=== PATIENT | male | born 1960 | race Hispanic/Latino ===

== ENCOUNTER 2017-09-14 11:10 | Emergency (ER) | payer BC ==
[2017-09-14 13:21] LABS: Absolute Lymphocytes (CBC) 1.3 K/uL (0.7-4.9); Absolute Monocytes 0.5 K/uL (0.1-1.3); Basophils % 0.6 % (0-1.3); Eosinophils % 2.7 % (0-4.4); Hematocrit 43.3 % (39.6-49.0); Lymphocytes % 21.7 % (15.3-44.8); MCH 30.5 pg (27.0-35.0); MCV 88.9 fL (80-100); MPV 10.8 fL (7.6-11.3); Monocytes % 8.5 % (3.3-12.3); RBC Red Blood Cell Count 4.87 M/uL (4.33-5.43)
[2017-09-14 13:25] LABS: Protime INR 0.96
[2017-09-14 13:38] LABS: ALT/SGPT 45 U/L (12-78); AST/SGOT 27 U/L (15-37); Albumin 3.9 g/dL (3.4-5.0); Alkaline Phosphatase 85 U/L (45-117); BUN Blood Urea Nitrogen 14 mg/dL (7-18); Bicarbonate 28 mmol/L (21-32); Bilirubin Direct 0.2 mg/dL (0-0.2); Bilirubin Total 1.1 mg/dL (0.2-1.0); CKMB Creatine Kinase MB 1.5 ng/mL (0.3-3.6); Creatine Phosphokinase 92 U/L (39-308); Glucose Level 105 mg/dL (74-106); Magnesium 2.3 mg/dL (1.8-2.4); NT PRO-BNP 10 pg/mL (<125); Potassium 4.4 mmol/L (3.5-5.1); Protein, Total 7.9 g/dL (6.4-8.2); Sodium Level 140 mmol/L (136-145)
[2017-09-14 14:06] LABS: Urine Blood TRACE (NEG); Urine Glucose NEGATIVE (NEG); Urine Protein NEGATIVE (NEG); Urine Specific Gravity 1.015 (1.005-1.030)
--- NOTE | 2017-09-14 14:26 | RAD REPORT ---
EXAM DESCRIPTION: RAD - Chest Single View - 09/14/2017 1:41 pm CLINICAL HISTORY: Headache, chest pain, diaphoretic COMPARISON: None. TECHNIQUE: AP portable chest image was obtained 1306 hours . FINDINGS: Lungs are clear. Heart and vasculature are normal. No measurable pleural effusion and no p neumothorax. No gross bony abnormality seen. No acute aortic findings suspected. IMPRESSION: No acute cardiopulmonary process.
--- NOTE | 2017-09-14 14:46 | EDPHYS ---
Physician Documentation [facility] Name: Chapin Vivas Age: 57 yrs Sex: Male : 1960 Arrival Date: 09/14/2017 Time: 11:12 Bed 25 Private MD: Toro Chavis S ED Physician Isaac Llamas HPI: 09/14 12:37 This 57 yrs old Male presents to ER via Ambulatory with complaints of jmm Shortness Of Breath, Anxiety. 12:37 The patient has shortness of breath at rest. Onset: The symptoms/episode began/occurred jmm acutely, just prior to arrival. Duration: The symptoms are continuous. Associated signs and symptoms: Pertinent negatives: chest pain, non-productive cough, dizziness, fever. This is a 57 year old male with a history of HTN that presents to the ED with shortness of breath beginning after drinking coffee at a restaurant earlier today. Patient states he awoke today with sinus congestion which he attributes to allergies. Patient states after drinking coffee feeling as if he could not breath, mainly from his nose. The patient denies chest pain, denies fever. . Historical: - Allergies: 11:27 No Known Allergies; sv - Home Meds: 11:27 Avapro Oral [Active]; Nexium Oral [Active]; Cialis oral oral [Active]; sv - PMHx: 11:27 Hypertension; sv - PSHx: 11:27 Melanoma cancer removed; Appendectomy; sv - Immunization history:: Adult Immunizations up to date. - Social history:: Smoking status: Patient/guardian denies using tobacco. - Ebola Screening: : No symptoms or risks identified at this time. ROS: 12:37 Constitutional: Negative for fever, chills, and weight loss, Eyes: Negative for injury, jmm pain, redness, and discharge, Cardiovascular: Negative for chest pain, palpitations, and edema. 12:37 Abdomen/GI: Negative for abdominal pain, nausea, vomiting, diarrhea, and constipation, Back: Negative for injury and pain, Skin: Negative for injury, rash, and discoloration, Neuro: Negative for headache, weakness, numbness, tingling, and seizure. 12:37 Respiratory: Positive for shortness of breath. 12:37 All other systems are negative. Exam: 12:37 Head/Face: atraumatic. Neck: Trachea midline, Supple Chest/axilla: Normal chest wall [facility] appearance and motion. Cardiovascular: Regular rate and rhythm. No edema appreciated Respiratory: Normal respirations, no respiratory distress appreciated Abdomen/GI: Non distended, soft Back: Normal ROM Skin: General appearance color normal MS/ Extremity: Moves all extremities, no obvious deformities appreciated, no edema noted to the lower extremities Neuro: Awake and alert, normal gait Psych: Behavior is normal, Mood is normal, Patient is cooperative and pleasant 12:37 Constitutional: The patient appears in no acute distress, alert, awake. 12:37 Cardiovascular: Rate: normal, Rhythm: regular, Pulses: no pulse deficits are appreciated. Vital Signs: 11:27 BP 127 / 75; Pulse 74; Resp 18; Temp 97.7; Pulse Ox 97% ; Weight 117.93 kg; Height 5 sv ft. 8 in. (172.72 cm); Pain 0/10; 13:30 BP 136 / 84; Pulse 68; Resp 14; Pulse Ox 96% on R/A; tw2 14:36 BP 131 / 81; Pulse 72; Resp 20; Pulse Ox 96% on R/A; tw2 11:27 Body Mass Index 39.53 (117.93 kg, 172.72 cm) sv MDM: 12:37 Patient medically screened. [facility] 14:43 Data reviewed: vital signs, nurses notes, lab test result(s), EKG, radiologic studies, [facility] plain films. Counseling: I had a detailed discussion with the patient and/or guardian regarding: the historical points, exam findings, and any diagnostic results supporting the discharge/admit diagnosis, lab results, radiology results. 14:43 Differential diagnosis: Myocardial Infarction Pulmonary Embolism sinusitis, allergic [facility] rhinosinusitis, anxiety. Counseling: I had a detailed discussion with the patient and/or guardian regarding: the presence of at least one elevated blood pressure reading (>120/80) during this emergency department visit. 09/14 12:38 Order name: Basic Metabolic Panel; Complete Time: 13:45 [facility] 09/14 12:38 Order name: CBC with Diff; Complete Time: 13:34 [facility] 09/14 12:38 Order name: Ckmb; Complete Time: 13:45 [facility] 09/14 12:38 Order name: CPK; Complete Time: 13:45 [facility] 07/14 12:38 Order name: LFT's; Complete Time: 13:45 [facility] 09/14 12:38 Order name: Magnesium; Complete Time: 13:45 [facility] 09/14 11:28 Order name: EKG; Complete Time: 11:28 sv 09/14 12:38 Order name: NT PRO-BNP; Complete Time: 13:45 m 14 12:38 Order name: PT-INR; Complete Time: 13:34 [facility] 09/14 12:38 Order name: Ptt, Activated; Complete Time: 13:34 [facility] 09/14 12:38 Order name: Troponin (emerg Dept Use Only); Complete Time: 13:45 [facility] 09/14 12:38 Order name: XRAY Chest (1 view); Complete Time: 14:30 [facility] 09/14 12:39 Order name: D-Dimer; Complete Time: 13:34 [facility] 09/14 13:25 Order name: Urine Dipstick--Ancillary (enter results); Complete Time: 14:08 eb 09/14 11:28 Order name: EKG - Nurse/Tech; Complete Time: 11:38 sv 09/14 12:38 Order name: Cardiac monitoring; Complete Time: 13:59 [facility] 09/14 12:38 Order name: IV Saline Lock; Complete Time: 13:59 [facility] 09/14 12:38 Order name: Labs collected and sent; Complete Time: 13:59 [facility] 09/14 12:38 Order name: O2 Per Protocol; Complete Time: 12:44 [facility] 09/14 12:38 Order name: O2 Sat Monitoring; Complete Time: 12:44 [facility] 09/14 12:38 Order name: Urine Dipstick-Ancillary (obtain specimen); Complete Time: 13:59 jm Administered Medications: No medications were administered Disposition: 09/15 06:43 Co-signature as Attending Physician, Isaac Llamas MD I agree with the assessment and tulio plan of care. Disposition: 09/14/17 14:45 Discharged to Home. Impression: Dyspnea, unspecified. - Condition is Stable. - Discharge Instructions: Panic Attacks, Shortness of Breath. - Medication Reconciliation Form, Thank You Letter, Antibiotic Education, Prescription Opioid Use form. - Follow up: Toro Chavis MD; When: 1 - 2 days; Reason: Continuance of care. Signatures: Dispatcher [employer] EDLA Tatiana, Charlee, RN RN Isaac Juan MD MD cha Mickail, Joel, PA PA jmm Wise, Tara, RN RN tw2 Corrections: (The following items were deleted from the chart) 09/14 14:52 14:45 09/14/2017 14:45 Discharged to Home. Impression: Dyspnea, unspecified. Condition tw2 is Stable. Forms are Medication Reconciliation Form, Thank You Letter, Antibiotic Education, Prescription Opioid Use. Follow up: Toro Chavis; When: 1 - 2 days; Reason: Continuance of care. alisia
--- NOTE | 2017-09-14 14:46 | ER ---
Nurse's Notes [facility] Name: Chapin Vivas Age: 57 yrs Sex: Male : 1960 Arrival Date: 09/14/2017 Time: 11:12 Bed 25 Private MD: Toro Chavis S Diagnosis: Dyspnea, unspecified Presentation: 09/14 11:25 Presenting complaint: Patient states: was driving earlier today and started feeling sv anxious and started getting diaphoretic. Pt reports it has been intermittent today. Denies SOB, dizziness, CP. c/o head congestion. Transition of care: patient was not received from another setting of care. Onset of symptoms was September 14, 2017. Care prior to arrival: None. 11:25 Method Of Arrival: Ambulatory sv 11:25 Acuity: BETTY 3 sv 13:31 Risk Assessment: Do you want to hurt yourself or someone else? Patient reports no tw2 desire to harm self or others. Initial Sepsis Screen: Does the patient meet any 2 criteria? No. Patient's initial sepsis screen is negative. Does the patient have a suspected source of infection? No. Patient's initial sepsis screen is negative. Triage Assessment: 13:31 General: Appears in no apparent distress. well groomed, Behavior is calm, cooperative, tw2 appropriate for age. Pain: Denies pain. Respiratory: Reports shortness of breath "suddenly after nose stuffed up while i was eating" Onset: The symptoms/episode began/occurred suddenly, the patient has mild shortness of breath. Historical: - Allergies: 11:27 No Known Allergies; sv - Home Meds: 11:27 Avapro Oral [Active]; Nexium Oral [Active]; Cialis oral oral [Active]; sv - PMHx: 11:27 Hypertension; sv - PSHx: 11:27 Melanoma cancer removed; Appendectomy; sv - Immunization history:: Adult Immunizations up to date. - Social history:: Smoking status: Patient/guardian denies using tobacco. - Ebola Screening: : No symptoms or risks identified at this time. Screenin:30 Abuse screen: Denies threats or abuse. Nutritional screening: No deficits noted. tw2 Tuberculosis screening: No symptoms or risk factors identified. Fall Risk None identified. Assessment: 12:30 General: Appears in no apparent distress. well groomed, Behavior is calm, cooperative, tw2 appropriate for age. Pain: Denies pain. Neuro: Level of Consciousness is awake, alert, obeys commands, Oriented to person, place, time, situation. Cardiovascular: Denies chest pain, Rhythm is sinus rhythm. Respiratory: Reports shortness of breath Airway is patent Respiratory effort is even, unlabored, Respiratory pattern is regular, symmetrical, Breath sounds are clear bilaterally. GI: No signs and/or symptoms were reported involving the gastrointestinal system. Abdomen is round non-distended, Bowel sounds present X 4 quads. : No signs and/or symptoms were reported regarding the genitourinary system. EENT: No signs and/or symptoms were reported regarding the EENT system. Derm: No signs and/or symptoms reported regarding the dermatologic system. Musculoskeletal: Range of motion: intact in all extremities. 13:30 Reassessment: Patient appears in no apparent distress at this time. No changes from tw2 previously documented assessment. Patient and/or family updated on plan of care and expected duration. Pain level reassessed. Patient is alert, oriented x 3, equal unlabored respirations, skin warm/dry/pink. 14:36 Reassessment: Patient appears in no apparent distress at this time. No changes from tw2 previously documented assessment. Patient and/or family updated on plan of care and expected duration. Pain level reassessed. Patient is alert, oriented x 3, equal unlabored respirations, skin warm/dry/pink. 14:51 Reassessment: Patient appears in no apparent distress at this time. No changes from tw2 previously documented assessment. Patient and/or family updated on plan of care and expected duration. Pain level reassessed. Patient is alert, oriented x 3, equal unlabored respirations, skin warm/dry/pink. Vital Signs: 11:27 BP 127 / 75; Pulse 74; Resp 18; Temp 97.7; Pulse Ox 97% ; Weight 117.93 kg; Height 5 sv ft. 8 in. (172.72 cm); Pain 0/10; 13:30 BP 136 / 84; Pulse 68; Resp 14; Pulse Ox 96% on R/A; tw2 14:36 BP 131 / 81; Pulse 72; Resp 20; Pulse Ox 96% on R/A; tw2 11:27 Body Mass Index 39.53 (117.93 kg, 172.72 cm) sv ED Course: 11:12 Patient arrived in ED. sb2 11:13 Toro Chavis MD is Private Physician. sb2 11:26 Triage completed. sv 11:27 Arm band placed on right wrist. sv 11:38 EKG done, by ED staff, reviewed by Isaac Llamas MD. em1 12:17 Bed in low position. Call light in reach. Side rails up X 1. Adult w/ patient. Cardiac tw2 monitor on. Pulse ox on. NIBP on. Warm blanket given. 12:21 Walter Mora PA is PHCP. jmm 12:21 Isaac Llamas MD is Attending Physician. jmm 12:23 Breanne Carrillo, RN is Primary Nurse. tw2 12:30 Inserted saline lock: 22 gauge in right antecubital area, using aseptic technique. tw2 Blood collected. 13:41 XRAY Chest (1 view) In Process Unspecified. EDMS 14:45 Toro Chavis MD is Referral Physician. jmm 14:51 No provider procedures requiring assistance completed. tw2 14:52 IV discontinued, intact, bleeding controlled, No redness/swelling at site. Pressure tw2 dressing applied. Administered Medications: No medications were administered Outcome: 14:45 Discharge ordered by MD. jmm 14:52 Discharged to home ambulatory, with significant other. tw2 14:52 Condition: stable 14:52 Discharge instructions given to patient, significant other, Instructed on discharge instructions, follow up and referral plans. Demonstrated understanding of instructions, follow-up care. 14:52 Patient left the ED. tw2 Signatures: Dispatcher [employer] EDMS Charlee Simpson, RN RN Walter Mora PA PA jmm Martinez, Eric em1 Breanne Carrillo, RN RN tw2 Jessie Borden sb2
--- NOTE | 2017-09-15 09:32 | EKG ---
Test Date: 2017-09-14 Test Time: 11:32:20 Passenger Train Braker: [place]ERRA MEASUREMENT RESULTS: Intervals: Rate: 72 ID: [id number] QRSD: 90 QT: 368 QTc: 402 [place]: P: 32 ID: [id number] QRS: 25 T: 59 INTERPRETIVE STATEMENTS: Normal sinus rhythm Normal ECG No previous ECG available for comparison Electronically Signed On 09-15-17 09:28:21 CDT by Jorge Warner
== END 2017-09-14 14:52 | disposition home or self-care (01) ==
LOC: ER 11:10
DX: R06.00 Dyspnea, unspecified (principal); I10 Essential (primary) hypertension; Z85.820 Personal history of malignant melanoma of skin
CPT/HCPCS: 36415; 71045; 80048; 80076; 81003; 82550; 82553; 83735; 83880; 84484; 85025; 85379; 85610; 85730; 93005; 99284

== ENCOUNTER 2023-11-01 06:07 | Day surgery (SDC) | payer BC, OTHER ==
[2023-10-24 14:29] LABS: Absolute Eosinophils 0.1 K/uL (0-0.5); Absolute Lymphocytes (CBC) 1.5 K/uL (0.7-4.9); Absolute Monocytes 0.5 K/uL (0.1-1.3); Absolute Neutrophil 4.1 K/uL (1.8-8.0); Basophils % 0.3 % (0-1.3); Eosinophils % 1.3 % (0-4.4); Hematocrit 44.8 % (39.6-49.0); Lymphocytes % 24.1 % (15.3-44.8); MCH 30.8 pg (27.0-35.0); MCHC 33.4 g/dL (32.0-36.0); MCV 92.1 fL (80-100); MPV 9.3 fL (7.6-11.3); Monocytes % 7.5 % (3.3-12.3); Neutrophils % 66.8 % (41.7-73.7); Nucleated Red Blood Cells % 0.1 % (0-0); Platelets 176 thou/uL (152-406); RBC Red Blood Cell Count 4.86 M/uL (4.33-5.43)
[2023-10-24 14:32] LABS: PT Prothrombin Time 11.5 SECONDS (9.4-12.5); Protime INR 1.03
[2023-10-24 14:40] LABS: Anion Gap 9.9 mEq/L (5.0-15.0); Potassium 3.9 mEq/L (3.5-5.1)
--- NOTE | 2023-10-24 17:36 | RAD REPORT ---
EXAM DESCRIPTION: RAD - Chest Pa And Lat (2 Views) - 10/24/2023 2:43 pm CLINICAL HISTORY: Pre op pending rotator cuff repair COMPARISON: Chest Single View dated 09/14/2017 TECHNIQUE: PA and lateral views of the chest were obtained. FINDINGS: The lungs are clear. Heart size is normal and central vasculature is within normal limits. No pleural effusion or pneumothorax seen. No acute bony finding noted. IMPRESSION: No acute cardiopulmonary process.
--- NOTE | 2023-10-25 13:29 | EKG ---
Test Date: 2023-10-24 Test Time: 14:08:39 Assistant Professor Nurse Education: [place] MEASUREMENT RESULTS: Intervals: Rate: 74 UT: 160 QRSD: 94 QT: 382 QTc: 424 [place]: P: 66 UT: 160 QRS: 38 T: 55 INTERPRETIVE STATEMENTS: Normal sinus rhythm Normal ECG Compared to ECG 09/14/2017 11:32:20 No significant changes Electronically Signed On 10-25-23 13:26:51 CDT by Edward Schmidt
[2023-11-01] MEDS: Ringers Lactate 1,000 ML IV ONE ×2 (06:40→09:30)
[2023-11-01] MEDS ORDERED: LIDOCAINE 1% MPF 5 ML VIAL ONE (06:59)
[2023-11-01] MEDS ORDERED: dexAMETHasone 10 MG/ML VIAL ONE ×2 (06:59→07:43)
[2023-11-01] MEDS ORDERED: EPINEPHRINE 1 MG/ML VIAL ONE (07:00)
[2023-11-01] MEDS ORDERED: MIDAZOLAM HCL 2 MG/2 ML INJ ONE (07:00)
[2023-11-01] MEDS ORDERED: FENTANYL CITR 100 MCG/2 ML ONE (07:00)
[2023-11-01] MEDS ORDERED: ROCURONIUM 50 MG/5 ML VIAL IV ONE (07:43)
[2023-11-01] MEDS ORDERED: KETOROLAC 30 MG/ML INJ ONE (07:43)
[2023-11-01] MEDS ORDERED: ONDANSETRON 4 MG/2 ML VIAL ONE (07:43)
[2023-11-01] MEDS ORDERED: LIDOCAINE 2% MPF 5 ML VIAL ONE (07:43)
[2023-11-01] MEDS ORDERED: propofoL 200 MG/20 ML VIAL IV ONE (07:43)
[2023-11-01] MEDS: CEFAZOLIN SODIUM 2 GM/VIAL ONE (08:00)
[2023-11-01] MEDS ORDERED: NS 0.9% VIAL 10 ML ONE ×2 (08:45→10:07)
[2023-11-01] MEDS ORDERED: Phenylephrine HCl 10 MG/ML 1 ML VIAL ONE (08:58)
[2023-11-01] MEDS: EPINEPHRINE 1 MG/ML VIAL ONE (09:00)
[2023-11-01] MEDS ORDERED: EPHEDRINE SULF 50 MG/ML VIAL ONE (09:07)
[2023-11-01] MEDS ORDERED: Mastisol Adhesive Liq ONE (10:07)
[2023-11-01] MEDS: BUPIVACAINE 0.5% PF 10 ML VIAL ONE (10:20)
--- NOTE | 2023-11-01 10:36 | P.BOP ---
Preoperative diagnosis: Right rotator cuff tear, impingement syndrome, biceps tenosynovitis Postoperative diagnosis: Same, right shoulder SLAP tear Primary procedure: Right shoulder arthroscopic rotator cuff repair Secondary procedure: Right shoulder arthroscopic SLAP tear debridement Other procedure(s): Right subacromial decompression, right open subpectoral biceps tenodesis Tape Duplicator: NONE,NONE Estimated blood loss: 10 cc Specimen: None Findings: See dictation Anesthesia: General Complications: None Implants: Arthrex 5.5 mm corkscrew, 4.75 mm swivellock x 2, 7 x 19 mm tenodesis screw Fluids & blood products: Per anesthesia record Transferred to: Recovery Room Condition: Good
--- NOTE | 2023-11-01 11:16 | RAD REPORT ---
EXAM DESCRIPTION: RAD - Shoulder 1 View - 11/01/2023 11:09 am CLINICAL HISTORY: shoulder surgery FINDINGS: Frontal view of the shoulder was obtained. No fracture or dislocation is seen. Small osteophytes AC joint
[2023-11-01] MEDS: HYDROCODONE/APAP 7.5/325 MG TAB ONE (12:00)
[2023-11-01 13:03] VITALS: BP 119/53; TEMP 97.1
[2023-11-01 13:05] VITALS: O2SAT 98
--- NOTE | 2023-11-13 11:26 | P.OP ---
Preoperative diagnosis: right shoulder rotator cuff tear, biceps tendinitis, impingement syndrome Postoperative diagnosis: same, right shoulder SLAP tear Primary procedure: Right shoulder arthroscopic rotator cuff repair Secondary procedure: Right shoulder arthroscopic SLAP tear debridement Other procedure(s): Right subacromial decompression, right open subpectoral biceps tenodesis Anesthesia: general Estimated blood loss: 10 cc Specimen: none Findings: See dictation Operative Technique: Indication For Procedure: Chapin is a 63-year-old male who presented to my clinic with signs, symptoms, and MRI findings consistent with a right shoulder full-thickness rotator cuff tear. Patient had significant pain and difficulties with his activities of daily living. I discussed the patient at length risks and benefits associated with operative and nonoperative treatment measures. He expressed understanding and elected to proceed with operative treatment. Description Of Procedure: After informed consent was obtained, the patient was identified in the preoperative holding area. The right upper extremity was marked. Patient was then brought back to the PACU where he underwent an interscalene block to his right upper extremity performed by the Anesthesia team. The patient was then brought back to the operating room, transferred to the operating table in supine fashion, placed under general endotracheal anesthesia. He was then placed in the beach chair position with his extremities well padded. The right upper extremity was then prepped and draped in the usual sterile fashion. A time-out was initiated. Correct patient and procedure confirmed and identified. The patient did receive his preoperative prophylactic antibiotics. A spinal needle was first introduced into the glenohumeral joint via the posterior portal position and the shoulder was injected with 30 cc of normal saline to distend the capsule. Posterior aparna l was placed. Arthroscope was brought in via the posterior portal position and diagnostic arthroscopy was performed. Under direct visualization, an anterior portal and cannula were placed. The patient was noted to have significant fraying of the superior labrum consistent with the type 1 SLAP tear as well as fraying and partial tear of the biceps tendon at near the anchor. A biceps tenotomy was performed using meniscal biters. The patient was noted to have no signifcant chondromalacia changes of the humeral head or glenoid surface. There were no loose bodies within the axillary pouch. Subscapularis was found to have some fraying at the superior border howerver stable to probe without any significant tear and was debrided with an arthroscopic shaver. There was a full thickness tear of the supraspinatus anteriorly. A lateral portal was created. Obturator was brought into the joint, consistent with a full-thickness tear. Arthroscopic shaver was then used to debride the undersurface of the tear as well as the greater tuberosity to create a bleeding bony bed. The arthroscope was then brought in the subacromial space where a subacromial bursectomy was performed and again the rotator cuff tear was again debrided just to clean healthy tissue. A pituitary grasper was then used and there was good reduction of the rotator cuff tear at the greater tuberosity. Just lateral to the acromion, a stab incision was made and a 5.5 mm double loaded Arthrex corkscrew was placed and there was good overall fixation of the device within the bone. The sutures were then passed on through an anterior to posterior fashion and a medial row fixation was completed and tying the sutures in a horizontal mattress type fashion. Suture limbs were then brought in a crisscross fashion and 2 lateral anchors were placed to reinforce the repair as well as increase the surface area of the repair. There was some fraying of the coracoacromial ligament and a subacromial decompression was performed. An arthroscopic bur was then used to perform an acromioplasty as well as with radiofrequency ablator. Arthroscopic instruments were then removed. Next, attention was taken to perform a biceps tenodesis. Approximately a 3 cm incision was made just medial to the pec insertion. Dissection was taken down to subpectorally. The long head of the biceps tendon was then identified and it was brought out through the incision, whipstitched for 2.5 cm. The remaining tendon was cut and a guide pin was placed through the proximal humerus followed by an 8 mm reamer in unicortical fashion. By the tunnel, a 7 mm biceps tenodesis screw was then placed with the suture passed through the middle of the screw and there was good overall fixation of the screw in the tendon within the tunnel. Suture limbs were then tied over the screw and remaining sutures were cut. Wounds were then irrigated thoroughly with normal saline. Subcutaneous tissue was approximated using a 2-0 Vicryl. Skin was approximated using a 4-0 Monocryl. Sterile dressings were applied. The patient was awakened and transferred to PACU in stable condition. The patient was placed in a shoulder immobilizer to protect the shoulder. Postoperative Plan: The patient will follow up in clinic next week for a wound check. He will begin physical therapy at 4 weeks postop per medium rotator cuff repair protocol. Complications: None Implants: 5.5 mm corkscrew, 2- 4.75 mm Swivelock; 7 x 19 mm Biotenodesis screw Fluids & blood products: per anesthesia record Transferred to: Recovery Room Condition: Good
== END 2023-11-01 12:15 | disposition home or self-care (01) ==
LOC: OR 06:07
PROVIDERS: ATTEND Orthopaedic Surgery Sports Medicine
PROC: 0LM14ZZ Reattachment of Right Shoulder Tendon, Percutaneous Endoscopic Approach (ICD-10-PCS; 2023-11-01)
PROC: 0LS34ZZ Reposition Right Upper Arm Tendon, Percutaneous Endoscopic Approach (ICD-10-PCS; 2023-11-01)
PROC: 0RHJ04Z Insertion of Internal Fixation Device into Right Shoulder Joint, Open Approach (ICD-10-PCS; 2023-11-01)
PROC: 0RNJ4ZZ Release Right Shoulder Joint, Percutaneous Endoscopic Approach (ICD-10-PCS; principal; 2023-11-01 08:00)
DX: M75.101 Unspecified rotator cuff tear or rupture of right shoulder, not specified as traumatic (principal); S46.211A Strain of muscle, fascia and tendon of other parts of biceps, right arm, initial encounter; M75.21 Bicipital tendinitis, right shoulder; M75.41 Impingement syndrome of right shoulder; M25.511 Pain in right shoulder
CPT/HCPCS: 93005; 85025; 80048; 36415; 85610; 85730; 71046; 73020; 29827; 29826; 29822; 23430; A4216 ×2; J2704; J2001 ×2; J2371; J2250; J3010; J1100 ×2; J0171 ×2; J2405; J7120 ×2